=== PATIENT | female | born 1985 | race Two or more races ===

== ENCOUNTER 2022-11-29 09:45 | Outpatient (CLI) | payer OTHER ==
[~2022-11-29 09:45] MED LIST: ALLEGRA ALLERG180 MG PO; FLONASE16 GM NS; GILTUSS TR TAB1 EACH PO
== END 2022-11-29 09:56 | disposition home or self-care (01) ==
LOC: RX STUDY 09:45
PROVIDERS: ATTEND Obstetrics & Gynecology
DX: N93.9 Abnormal uterine and vaginal bleeding, unspecified (principal)

== ENCOUNTER 2022-12-22 11:18 | Day surgery (SDC) | payer OTHER ==
[2022-12-22] MEDS ORDERED: ZITHROMAX500 MG PO (16:50)
[2022-12-22] MEDS ORDERED: IBU400 MG PO (16:51)
== END 2022-12-22 19:15 | disposition home or self-care (01) ==
LOC: CIR.AMB 11:18
PROVIDERS: ATTEND Obstetrics & Gynecology
DX: N84.0 Polyp of corpus uteri (principal); Z20.822 Contact with and (suspected) exposure to COVID-19